=== PATIENT | female | born 2000 | race African-American/Black ===

== ENCOUNTER 2023-12-17 15:41 | Outpatient (CLI) | payer OTHER, SELFPAY ==
[2023-12-17 18:12] LABS: HCG,Quantitative 25806 mIU/ml (0-5.42)
[2023-12-19 13:09] LABS: Progesterone 28.4 ng/mL (.)
== END 2023-12-17 23:59 | disposition home or self-care (01) ==
LOC: LAB 15:45
PROVIDERS: Visit Provider Obstetrics & Gynecology
DX: N92.6 Irregular menstruation, unspecified (principal); Z32.00 Encounter for pregnancy test, result unknown
CPT/HCPCS: 36415; 84144; 84702

== ENCOUNTER 2023-12-20 16:17 | Outpatient (CLI) | payer OTHER, SELFPAY | END 2023-12-20 23:59 | disposition home or self-care (01) | LOC: LAB.DROPOF 16:17 | PROVIDERS: PCP Obstetrics & Gynecology; Visit Provider Obstetrics & Gynecology | DX: O26.892 Other specified pregnancy related conditions, second trimester (principal); Z3A.18 18 weeks gestation of pregnancy; B96.1 Klebsiella pneumoniae [K. pneumoniae] as the cause of diseases classified elsewhere | CPT/HCPCS: 87086; 87088; 87186 ==

== ENCOUNTER 2023-12-27 13:32 | Outpatient (CLI) | payer OTHER, SELFPAY ==
--- NOTE | 2023-12-27 13:32 | US_ITS ---
PROCEDURE: US OB /MATERNAL DETAIL CLINICAL INDICATION: 20 wk +anatomy scan COMPARISON: No exams were available for comparison FINDINGS: Transabdominal sonographic images of the pelvis were obtained. From her established due date she is 19 weeks 4 days. Single viable intrauterine gestation. Breech position. Placenta: Posteriorplacenta grade 1. There is an average amount of fluid. The cervix appears satisfactory. Closed and measuring 4.29 cm in length. Complete survey performed and was unremarkable on the submitted images as in PACS. No discrete anomalies identified on survey imaging by technologist. Active fetus. Three-vessel cord with satisfactory umbilical cord insertion. 4- chamber heart noted. Situs, aortic arch, LVOT, RVOT appear normal. Survey of brain & ventricles Unremarkable. Cerebellum, thalamus, choroid plexus, cisterna magna appear normal. Face and neck survey unremarkable. Profile, nasion, lips and nose appeared normal. Diaphragm and chest views unremarkable. Abdomen: Both kidneys noted and unremarkable. Stomach and bladder noted and satisfactory. Spine: Survey of the spine satisfactory with no anomalies identified nor imaged. Cervical, thoracic, lower spine appear normal. Both arms and legs noted. Amniotic Fluid: Adequate. Measurements: Average ultrasound age 20weeks 1day. Estimated due date by ultrasound age 1005/14/2024. Estimated weight 345g BPD = 19weeks 4days HC = 19weeks 5days AC = 20weeks 2days FL = 20weeks 4days Growth Percentile= 85 Heart Rate = 139bpm Cerebellum = 18weeks 6days Humerus = 20weeks 6days HC/AC is 1.14 FL/BPD is 0.75 FL/AC is 0.22 IMPRESSION: 1. Viable fetus in the breech presentation with posterior placenta grade 1. 2. The fluid is within normal limits. 3. Anatomical scan appears normal. 4. biometry is consistent with a dates. Dictated by: Marko Conner MD 12/27/2023 17:24 Marko Conner MD in [facility] 12/27/2023 17:24
[2023-12-27 15:08] LABS: Basophils % 0.3 % (0.1-2.0); Eosinophils # 0.1 K/mm3 (0.0-0.4); Hematocrit 32.6 % (37.0-47.0); Hemoglobin 10.7 g/dL (12.2-16.2); Lymphocytes # 1.2 K/mm3 (0.7-4.5); Mean Corpuscular HGB Conc 32.7 g/dL (31.8-35.4); Mean Corpuscular Hemoglobin 32.9 pg (27.0-31.2); Mean Corpuscular Volume 100.8 fl (81-99); Mean Platelet Volume 8.1 fl (7.4-10.4); Monocytes # 0.3 K/mm3 (0.1-1.0); Monocytes % 3.7 % (1.7-9.3); Neutrophils # 5.4 K/mm3 (1.8-7.8); Platelet Count 323 K/mm3 (142-424); Red Blood Count 3.24 M/mm3 (4.20-5.40); Red Cell Distribution Width 13.5 % (11.5-17.5); White Blood Count 6.9 K/mm3 (4.8-10.8)
[2023-12-28 14:19] LABS: HCV Ab Non Reactive (Non Reactive); HIV Screen 4th Generation wRfx Non Reactive (Non Reactive); Hepatitis B Surface Antigen Negative (Negative); Rapid Plasma Reagin Ab Titer Non Reactive titer (NonRea<1:1); Rubella Antibodies, IgG 1.71 index (Immune >0.99)
== END 2023-12-27 23:59 | disposition home or self-care (01) ==
LOC: RAD 13:32
PROVIDERS: PCP Obstetrics & Gynecology; Visit Provider Obstetrics & Gynecology
DX: O09.32 Supervision of pregnancy with insufficient antenatal care, second trimester (principal); Z3A.20 20 weeks gestation of pregnancy; Z36.3 Encounter for antenatal screening for malformations
CPT/HCPCS: 36415; 76811; 85025; 86593; 86703; 86762; 86850; 87340; G0432

== ENCOUNTER 2024-01-17 14:00 | Outpatient (CLI) | payer OTHER, SELFPAY ==
[2024-01-17 16:13] LABS: Vitamin B12 233 pg/mL (239-931)
[2024-01-17 16:15] LABS: Folate > 20.00 ng/mL
== END 2024-01-17 23:59 | disposition home or self-care (01) ==
LOC: LAB 14:00
PROVIDERS: Visit Provider Obstetrics & Gynecology
DX: O09.32 Supervision of pregnancy with insufficient antenatal care, second trimester (principal); O32.1XX0 Maternal care for breech presentation, not applicable or unspecified; Z3A.22 22 weeks gestation of pregnancy
CPT/HCPCS: 36415; 82607; 82746

== ENCOUNTER 2024-03-03 13:58 | Outpatient (CLI) | payer OTHER, SELFPAY | END 2024-03-03 23:59 | disposition home or self-care (01) | PROVIDERS: Visit Provider Obstetrics & Gynecology | DX: Z02.9 Encounter for administrative examinations, unspecified (principal) ==

== ENCOUNTER 2024-03-04 11:16 | Outpatient (CLI) | payer OTHER, SELFPAY ==
[2024-03-04 11:45] LABS: Basophils % 0.5 % (0.1-2.0); Eosinophils # 0.1 K/mm3 (0.0-0.4); Eosinophils % 1.1 % (0.1-12.0); Hematocrit 30.8 % (37.0-47.0); Lymphocytes # 1.3 K/mm3 (0.7-4.5); Lymphocytes % 19.2 % (10-50); Mean Corpuscular HGB Conc 32.5 g/dL (31.8-35.4); Mean Corpuscular Hemoglobin 30.7 pg (27.0-31.2); Mean Corpuscular Volume 94.5 fl (81-99); Mean Platelet Volume 8.5 fl (7.4-10.4); Monocytes # 0.3 K/mm3 (0.1-1.0); Neutrophils # 5.1 K/mm3 (1.8-7.8); Neutrophils % 75.2 % (37.0-80.0); Platelet Count 302 K/mm3 (142-424); Red Blood Count 3.26 M/mm3 (4.20-5.40); Red Cell Distribution Width 13.8 % (11.5-17.5); White Blood Count 6.8 K/mm3 (4.8-10.8)
[2024-03-04 13:26] LABS: Vitamin B12 333 pg/mL (239-931)
== END 2024-03-04 23:59 | disposition home or self-care (01) ==
LOC: LAB 11:17
PROVIDERS: Visit Provider Obstetrics & Gynecology
DX: D51.9 Vitamin B12 deficiency anemia, unspecified (principal); Z34.90 Encounter for supervision of normal pregnancy, unspecified, unspecified trimester
CPT/HCPCS: 36415; 82607; 85025

== ENCOUNTER 2024-03-18 11:01 | Outpatient (CLI) | payer OTHER, SELFPAY ==
[2024-03-18 11:46] LABS: Glucose,Fasting 78 mg/dl (74-100)
[2024-03-18 13:08] LABS: Glucose 1 Hour 117 mg/dL (74-100)
== END 2024-03-18 23:59 | disposition home or self-care (01) ==
LOC: LAB 11:02
PROVIDERS: Visit Provider Obstetrics & Gynecology
DX: O09.33 Supervision of pregnancy with insufficient antenatal care, third trimester (principal); Z3A.31 31 weeks gestation of pregnancy
CPT/HCPCS: 36415; 82951

== ENCOUNTER 2024-04-20 10:25 | Outpatient (CLI) | payer OTHER, SELFPAY ==
--- NOTE | 2024-04-20 10:29 | US_ITS ---
PROCEDURE: US OB BIOPHYSICAL PROFILE CLINICAL INDICATION: sga COMPARISON: US US OB /MATERNAL DETAIL from 12/27/2023 FINDINGS: Transabdominal sonographic images of the uterus were obtained. From her established due date she is 36weeks 0 days. The following parameters are obtained: Viable Fetus in the cephalic presentation with a posterior placenta grade 2. Average ultrasound age is 36weeks 2days Estimated weight 2,655g, 5 lb 14 oz The cervix measures 3.4 cm. Measurements: heart Rate = 149bpm BPD = 36weeks 5days, 77 percentile HC = 38weeks 1day, 71 percentile AC = 34weeks 5days, 23 percentile FL = 35weeks 1day, 22 percentile HC/AC is 1.08 FL/BPD is 0.75 FL/AC is 0.22 33 percentile Amniotic fluid index: 16.47cm, MVP 5.06 cm. Qualitative AFV:2 Breathing movements: 2 Gross Body Movements: 2 Tone: 2 Biophysical profile score: 8 Doppler evaluation of the umbilical artery: SD ratio: 2.14-2.25. Resistive index: 0.56 No obvious anomalies evident.Kidneys, profile, bladder, stomach, four-chamber heart, three-vessel cord appear normal. IMPRESSION: 1. Viable fetus in the cephalic presentation with a posterior placenta grade 2. 2. The fluid is within normal limits with an amniotic fluid index 16.47 cm, MVP 5.06 cm. 3. Biophysical profile is 8/8 with good breathing movement and movement seen. 4. SD ratio is normal 2.14-2.25. 5. There has been good interval growth with the fetus currently 33rd percentile. 6. Limited anatomical scan appears normal. Dictated by: Marko Conner MD 04/21/2024 07:37 Marko Conner MD in [facility] 04/21/2024 07:37
== END 2024-04-20 23:59 | disposition home or self-care (01) ==
LOC: RAD 10:26
PROVIDERS: Visit Provider Obstetrics & Gynecology
DX: O36.5990 Maternal care for other known or suspected poor fetal growth, unspecified trimester, not applicable or unspecified (principal)
CPT/HCPCS: 76816; 76819; 76820

== ENCOUNTER 2024-04-23 15:45 | Outpatient (CLI) | payer OTHER, SELFPAY | END 2024-04-23 23:59 | disposition home or self-care (01) | LOC: LAB.DROPOF 04-24 12:45 | PROVIDERS: PCP Obstetrics & Gynecology; Visit Provider Obstetrics & Gynecology | DX: Z34.90 Encounter for supervision of normal pregnancy, unspecified, unspecified trimester (principal) | CPT/HCPCS: 86403 ==